=== PATIENT | female | born 1945 | race Caucasian/White ===

== ENCOUNTER 2021-04-08 15:00 | Outpatient (CLI) | payer MEDICARE | END 2021-04-08 15:01 | disposition home or self-care (01) | LOC: RT 15:00 | PROVIDERS: ATTEND Internal Medicine Cardiovascular Disease | DX: I48.91 Unspecified atrial fibrillation (principal) | CPT/HCPCS: 36415; 80053; 80061; 83721; 84439; 84443; 85025; 93005 ==

== ENCOUNTER 2021-04-08 15:30 | Outpatient (CLI) | payer MEDICARE ==
[2021-04-08 15:49] LABS: BASOPHILS % (AUTO) 0.4 %; EOSINOPHILS # (AUTO) 0.3 10^3/uL (0.0-0.7); EOSINOPHILS % (AUTO) 2.7 %; HCT - HEMATOCRIT 43.4 % (37.0-47.0); HGB - HEMOGLOBIN 13.9 g/dL (12.0-16.0); LYMPHOCYTES % (AUTO) 29.9 %; MEAN CORPUSCULAR HEMOGLOBIN 30.1 pg (27.0-31.0); MEAN CORPUSCULAR VOLUME 93.9 fL (81.0-99.0); MONOCYTES # (AUTO) 0.5 10^3/uL (0.0-1.0); MONOCYTES % (AUTO) 5.3 %; NEUTROPHILS # (AUTO) 6.2 10^3/uL (1.5-6.6); NEUTROPHILS % (AUTO) 61.4 %; PLT - PLATELET COUNT 273 10^3/uL (130-450); RED BLOOD COUNT 4.62 10^6/uL (4.20-5.40); RED CELL DISTRIBUTION WIDTH 14.2 % (12.0-15.0); WHITE BLOOD COUNT 10.1 x10^3/uL (4.8-10.8)
[2021-04-08 16:12] LABS: ALBUMIN 4.4 g/dL (3.2-5.5); ALBUMIN/GLOBULIN RATIO 1.6 (1.0-2.2); ALKALINE PHOSPHATASE 59 IU/L (42-121); ALT ALANINE AMINOTRANSFERASE 14 IU/L (10-60); AST ASPARTATE AMINOTRANSFERASE 16 IU/L (10-42); BILIRUBIN,TOTAL 0.8 mg/dL (0.2-1.0); BUN - BLOOD UREA NITROGEN 28 mg/dL (6-20); CALCIUM 9.4 mg/dL (8.5-10.3); CARBON DIOXIDE - CO2 26 mmol/L (21-32); CHLORIDE 103 mmol/L (101-111); CHOL/HDL RATIO 2.2 (<4.4); CHOLESTEROL 201 mg/dL; CREATININE 0.9 mg/dL (0.4-1.0); GFR - MDRD 61 (>89); GLUCOSE 90 mg/dL (70-100); HDL CHOLESTEROL 90 mg/dL; LDL CHOLESTEROL,CALCULATED 95 mg/dL; LDL/HDL RATIO 1.1 (<4.4); POTASSIUM 4.2 mmol/L (3.5-5.0); SODIUM 136 mmol/L (135-145); TOTAL PROTEIN 7.1 g/dL (6.7-8.2); TRIGLYCERIDES 82 mg/dL; VLDL CHOLESTEROL 16 mg/dL
[2021-04-08 16:25] LABS: THYROID STIMULATING HORMONE 0.2 uIU/mL (0.34-5.60)
[2021-04-08 16:27] LABS: FREE T4 (FREE THYROXINE) 1.36 ng/dL (0.58-1.64)
== END 2021-04-08 15:31 | disposition home or self-care (01) ==
LOC: LAB 15:30
PROVIDERS: ATTEND Internal Medicine Cardiovascular Disease
DX: I48.91 Unspecified atrial fibrillation (principal)
CPT/HCPCS: 36415; 80053; 80061; 83721; 84439; 84443; 85025

== ENCOUNTER 2021-04-23 15:29 | Emergency (ER) | payer MEDICARE ==
[2021-04-23] MEDS ORDERED: SODIUM CHLORIDE 0.9% 1,000 ML IV STA ×2 (16:23→17:45)
--- NOTE | 2021-04-23 16:26 | ED Physician Documentation ---
PD HPI NVD - Stated complaint Stated Complaint: AFIB/VOM/SUZANNE/HEADACHE - Chief complaint Chief Complaint: Abd Pain - History obtained from History obtained from: Patient - History of Present Illness Timing - onset: How many days ago (4) Timing - duration: Days (4) Timing - details: Abrupt onset, Now resolved Associated symptoms: Abdominal pain, Other (diarrhea and vomiting) Contributing factors: Bad food Improved by: Vomiting, BM Similar symptoms before: Diagnosis (food poisoning) Recently seen: Not recently seen - Additonal information Additional information: Previously well 75-year-old female reports that she developed some nausea vomiting and diarrhea about 4 days ago. She believes this was some bad food that she ate. She has had something similar previously. She was asked to come to the emergency department when she called the nurse hotline and she was not improved this morning. The patient still feels ill. She has stopped vomiting yesterday she stopped having diarrhea 2 days ago and she was able to drink 12 ounces of daniel shen today. She was not able to drink or consume much of anything yesterday. Review of Systems Constitutional: denies: Fever Ears: denies: Ear pain Nose: denies: Congestion Throat: denies: Sore throat Respiratory: denies: Cough GI: reports: Nausea, Vomiting, Diarrhea. denies: Abdominal Pain : denies: Dysuria, Frequency Skin: denies: Rash Musculoskeletal: denies: Neck pain, Back pain, Extremity pain Neurologic: reports: Generalized weakness. denies: Focal weakness, Numbness PD PAST MEDICAL HISTORY - Allergies Allergies/Adverse Reactions: Allergies Allergy/AdvReac Type Severity Reaction Status Date / Time aspirin AdvReac Hives Verified 04/23/21 15:39 PD ED PE NORMAL - Vitals Vital signs reviewed: Yes (hypertensive mild ) - General General: Alert and oriented X 3, No acute distress, Well developed/nourished - HEENT HEENT: Atraumatic, PERRL, EOMI - Neck Neck: Supple, no meningeal sign, No bony TTP - Cardiac Cardiac: RRR, No murmur - Respiratory Respiratory: No respiratory distress, Clear bilaterally - Abdomen Abdomen: Normal bowel sounds, Soft, Non tender, Non distended, No organomegaly - Back Back: No CVA TTP, No spinal TTP - Derm Derm: Normal color, Warm and dry, No rash, Other (skin tents easily) - Extremities Extremities: No deformity, No edema - Neuro Neuro: Alert and oriented X 3, 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, No motor deficit, No sensory deficit, Normal speech Eye Opening: Spontaneous Motor: Obeys Commands Verbal: Oriented GCS Score: 15 - Psych Psych: Normal mood, Normal affect Results - Vitals Vitals: Vital Signs - 24 hr 04/23/21 04/23/21 04/23/21 15:36 16:22 17:30 Temperature 36.8 C Heart Rate 78 78 75 Respiratory 14 18 18 Rate Blood Pressure 131/75 H 137/78 H 129/70 O2 Saturation 95 98 100 04/23/21 19:22 Temperature Heart Rate 73 Respiratory 25 H Rate Blood Pressure 134/76 H O2 Saturation 99 Oxygen O2 Source Room air - EKG (time done) 1638 Rate: Rate (enter#) (66) Rhythm: NSR QRS: Low voltage Compare to prior EKG: Unchanged from prior EKG (spt 04-08-21 no changes) Computer interpretation: Agree with computer - Labs Labs: Laboratory Tests 04/23/21 04/23/21 04/23/21 16:35 16:35 18:16 WBC 8.0 RBC 4.31 Hgb 13.2 Hct 39.8 MCV 92.3 MCH 30.6 MCHC 33.2 RDW 13.3 Plt Count 244 MPV 9.8 Neut # (Auto) 5.2 Lymph # (Auto) 2.3 [place] # (Auto) 0.5 Eos # (Auto) 0.0 Baso # (Auto) 0.0 Absolute Nucleated RBC 0.00 Nucleated RBC % 0.0 Sodium 138 Potassium 3.4 L Chloride 102 Carbon Dioxide 26 Anion Gap 10.0 BUN 16 Creatinine 0.8 Estimated GFR (MDRD) 70 L Glucose 81 Calcium 9.0 Total Bilirubin 0.5 AST 17 ALT 15 Alkaline Phosphatase 42 Total Protein 6.3 L Albumin 3.6 Globulin 2.7 Albumin/Globulin Ratio 1.3 Lipase 36 Urine Color YELLOW Urine Clarity CLEAR Urine pH 6.0 Ur Specific [place] <=1.005 Urine Protein NEGATIVE Urine Glucose (UA) NEGATIVE Urine Ketones TRACE Urine Occult Blood NEGATIVE Urine Nitrite NEGATIVE Urine Bilirubin NEGATIVE Urine Urobilinogen 0.2 (NORMAL) Ur Leukocyte Esterase NEGATIVE Ur Microscopic Review NOT INDICATED Urine Culture Comments NOT INDICATED Procedures - IVC sono (time) 1555 Bedside IVC sono: IVC measures (cm) (0.89), IVC collapsed c insp (cm) (complete), Significant dehydration (est 2 liter deficit) PD MEDICAL DECISION MAKING - ED course Complexity details: reviewed old records, reviewed results, re-evaluated patient, considered differential, d/w patient, d/w family ED course: 75 y/o female with history of afib has developed nausea vomiting and diarrhea about 4 days ago. The acute episode has resolved and the patient continues to have symptoms of weakness and not feeling well. She is found to be dehydrated on interrogation of the IVC and she is administered IV saline. She has marked improvement with saline and is discharged to home. Departure - Departure Disposition: 01 Home, Self Care Clinical Impression: Dehydration, Gastroenteritis Condition: Stable Instructions: ED Dehydration, ED Gastroenteritis Vs Food Poison Follow-Up: Roberto Gayle MD [Primary Care Provider] -
[2021-04-23 16:56] LABS: BASOPHILS % (AUTO) 0.2 %; EOSINOPHILS % (AUTO) 0.5 %; HCT - HEMATOCRIT 39.8 % (37.0-47.0); HGB - HEMOGLOBIN 13.2 g/dL (12.0-16.0); LYMPHOCYTES # (AUTO) 2.3 10^3/uL (1.5-3.5); LYMPHOCYTES % (AUTO) 29.1 %; MEAN CORPUSCULAR HEMOGLOBIN 30.6 pg (27.0-31.0); MEAN CORPUSCULAR HGB CONC 33.2 g/dL (32.0-36.0); MEAN CORPUSCULAR VOLUME 92.3 fL (81.0-99.0); MEAN PLATELET VOLUME 9.8 fL (7.9-10.8); MONOCYTES # (AUTO) 0.5 10^3/uL (0.0-1.0); NEUTROPHILS # (AUTO) 5.2 10^3/uL (1.5-6.6); NEUTROPHILS % (AUTO) 64.1 %; PLT - PLATELET COUNT 244 10^3/uL (130-450); RED BLOOD COUNT 4.31 10^6/uL (4.20-5.40); RED CELL DISTRIBUTION WIDTH 13.3 % (12.0-15.0)
[2021-04-23 17:06] LABS: ALBUMIN 3.6 g/dL (3.2-5.5); ALBUMIN/GLOBULIN RATIO 1.3 (1.0-2.2); BILIRUBIN,TOTAL 0.5 mg/dL (0.2-1.0); CREATININE 0.8 mg/dL (0.4-1.0); POTASSIUM 3.4 mmol/L (3.5-5.0); TOTAL PROTEIN 6.3 g/dL (6.7-8.2)
[2021-04-23 18:43] LABS: BILIRUBIN,URINE NEGATIVE (NEGATIVE); GLUCOSE, URINE (UA) NEGATIVE (NEGATIVE); KETONES,URINE (UA) TRACE mg/dL (NEGATIVE); LEUKOCYTE ESTERASE, URINE NEGATIVE (NEGATIVE); NITRITE,URINE NEGATIVE (NEGATIVE); OCCULT BLOOD,URINE NEGATIVE (NEGATIVE); PROTEIN,URINE NEGATIVE (NEGATIVE); UROBILINOGEN,URINE 0.2 (NORMAL) E.U./dL (NORMAL)
[2021-04-23 18:46] LABS: CLARITY,URINE CLEAR (CLEAR)
[2021-04-23 19:23] VITALS: BP 134/76
== END 2021-04-23 19:51 | disposition home or self-care (01) ==
LOC: ED 15:29
DX: K52.9 Noninfective gastroenteritis and colitis, unspecified (principal); E86.0 Dehydration
CPT/HCPCS: 36415; 80053; 81001; 81003; 83690; 85025; 87086; 93005; 96360; 96361; 99282

== ENCOUNTER 2021-04-27 22:28 | Emergency (ER) | payer MEDICARE ==
[2021-04-27 23:07] LABS: BASOPHILS # (AUTO) 0.1 10^3/uL (0.0-0.1); BASOPHILS % (AUTO) 0.4 %; EOSINOPHILS # (AUTO) 0.1 10^3/uL (0.0-0.7); EOSINOPHILS % (AUTO) 1.2 %; HCT - HEMATOCRIT 44.3 % (37.0-47.0); HGB - HEMOGLOBIN 14.6 g/dL (12.0-16.0); LYMPHOCYTES # (AUTO) 2.9 10^3/uL (1.5-3.5); LYMPHOCYTES % (AUTO) 25.4 %; MEAN CORPUSCULAR HEMOGLOBIN 30.4 pg (27.0-31.0); MEAN CORPUSCULAR VOLUME 92.1 fL (81.0-99.0); MEAN PLATELET VOLUME 9.6 fL (7.9-10.8); MONOCYTES # (AUTO) 0.6 10^3/uL (0.0-1.0); MONOCYTES % (AUTO) 5.1 %; NEUTROPHILS # (AUTO) 7.6 10^3/uL (1.5-6.6); NEUTROPHILS % (AUTO) 67.5 %; PLT - PLATELET COUNT 354 10^3/uL (130-450); RED BLOOD COUNT 4.81 10^6/uL (4.20-5.40); RED CELL DISTRIBUTION WIDTH 13.5 % (12.0-15.0); WHITE BLOOD COUNT 11.3 x10^3/uL (4.8-10.8)
[2021-04-27] MEDS ORDERED: SODIUM CHLORIDE 0.9% 1,000 ML IV STA (23:13)
[2021-04-27] MEDS ORDERED: ONDANSETRON 4 MG/2 ML VIAL IVP STA (23:13)
[2021-04-27 23:15] LABS: PT - PROTHROMBIN TIME 49.7 secs (9.9-12.6)
[2021-04-27 23:20] LABS: ALBUMIN/GLOBULIN RATIO 1.3 (1.0-2.2); BILIRUBIN,TOTAL 0.5 mg/dL (0.2-1.0); CALCIUM 9.2 mg/dL (8.5-10.3); CREATININE 0.8 mg/dL (0.4-1.0); POTASSIUM 3.5 mmol/L (3.5-5.0); TOTAL PROTEIN 7.1 g/dL (6.7-8.2)
[2021-04-27 23:21] LABS: INR 4.5 (0.8-1.2)
[2021-04-28] MEDS ORDERED: FAMOTIDINE 20 MG/2 ML VIAL IVP STA (00:13)
--- NOTE | 2021-04-28 00:14 | ED Physician Documentation ---
PD HPI NVD - Stated complaint Stated Complaint: VOMIT/HEADACHE - Chief complaint Chief Complaint: Abd Pain - Additonal information Additional information: Patient with a 1 week history of intermittent nausea vomiting and diarrhea. She was seen on April 23 for similar symptoms. No medications were prescribed. Patient states her symptoms were doing better but then yesterday she had 7-8 loose stools. There was no blood. Today again she was doing better and this evening she had a few episodes of emesis after eating chicken and rice soup. She denies diarrhea today. She reported that her nausea had improved yesterday and she did not have any vomiting yesterday. Denies any abdominal pains. She is on Coumadin for history of A. fib. Denies chest pain, difficulty breathing.She believes that she may have had food poisoning from eating pulled pork that did not seem warm enough. She denies sick contacts, recent antibiotic use, recent travel. Review of Systems Constitutional: denies: Fever Nose: denies: Congestion Cardiac: denies: Chest pain / pressure Respiratory: denies: Dyspnea, Cough GI: reports: Nausea, Vomiting, Diarrhea. denies: Abdominal Pain : denies: Dysuria Skin: denies: Rash Neurologic: denies: Syncope PD PAST MEDICAL HISTORY - Present Medications Home Medications: Ambulatory Orders Medication Instructions Recorded Confirmed Dronedarone HCl [Multaq] 04/27/21 Gabapentin [Neurontin] 04/27/21 Levothyroxine [Synthroid] 04/27/21 Omeprazole Magnesium 04/27/21 Simvastatin [Zocor] 04/27/21 04/27/21 Venlafaxine ER [Effexor ER] 04/27/21 Warfarin [Coumadin] 7.5 mg ORAL DAILY 04/27/21 04/27/21 Loperamide [Imodium] 2 mg PO QID PRN #20 tab 04/28/21 Ondansetron Odt [Zofran] 4 mg TL Q6H PRN #10 tablet 04/28/21 - Allergies Allergies/Adverse Reactions: Allergies Allergy/AdvReac Type Severity Reaction Status Date / Time aspirin AdvReac Hives Verified 04/27/21 22:41 PD ED PE NORMAL - General General: Alert and oriented X 3, No acute distress, Well developed/nourished - HEENT HEENT: Atraumatic, Moist mucous membranes - Neck Neck: Supple, no meningeal sign - Cardiac Cardiac: RRR, Strong equal pulses - Respiratory Respiratory: No respiratory distress, Clear bilaterally - Abdomen Abdomen: Normal bowel sounds, Soft, Non tender, Non distended - Back Back: No CVA TTP - Derm Derm: Normal color, Warm and dry - Extremities Extremities: No deformity - Neuro Neuro: No motor deficit, Normal speech - Psych Psych: Normal mood, Normal affect Results - Vitals Vitals: Vital Signs - 24 hr 04/27/21 04/27/21 04/27/21 22:38 23:01 23:53 Temperature 36.4 C L Heart Rate 83 74 72 Respiratory 18 18 18 Rate Blood Pressure 104/79 137/72 H 131/74 H O2 Saturation 97 98 100 04/28/21 00:29 Temperature Heart Rate 74 Respiratory 16 Rate Blood Pressure 122/80 O2 Saturation 97 Oxygen O2 Source Room air - EKG (time done) 2324 Rate: Rate (enter#) Rhythm: NSR (76) [place]: Normal Ischemia: No: ST elevation c/w ischemia Computer interpretation: Agree with computer - Labs Labs: Laboratory Tests 04/27/21 04/27/21 04/27/21 22:50 22:50 22:50 WBC 11.3 H RBC 4.81 Hgb 14.6 Hct 44.3 MCV 92.1 MCH 30.4 MCHC 33.0 RDW 13.5 Plt Count 354 MPV 9.6 Neut # (Auto) 7.6 H Lymph # (Auto) 2.9 [place] # (Auto) 0.6 Eos # (Auto) 0.1 Baso # (Auto) 0.1 Absolute Nucleated RBC 0.00 Nucleated RBC % 0.0 PT 49.7 H INR 4.5 H* Sodium 138 Potassium 3.5 Chloride 101 Carbon Dioxide 26 Anion Gap 11.0 BUN 14 Creatinine 0.8 Estimated GFR (MDRD) 70 L Glucose 100 Calcium 9.2 Total Bilirubin 0.5 AST 19 ALT 17 Alkaline Phosphatase 48 Troponin I High Sens Total Protein 7.1 Albumin 4.0 Globulin 3.1 Albumin/Globulin Ratio 1.3 Lipase 40 04/27/21 22:50 WBC RBC Hgb Hct MCV MCH MCHC RDW Plt Count MPV Neut # (Auto) Lymph # (Auto) [place] # (Auto) Eos # (Auto) Baso # (Auto) Absolute Nucleated RBC Nucleated RBC % PT INR Sodium Potassium Chloride Carbon Dioxide Anion Gap BUN Creatinine Estimated GFR (MDRD) Glucose Calcium Total Bilirubin AST ALT Alkaline Phosphatase Troponin I High Sens 3.6 Total Protein Albumin Globulin Albumin/Globulin Ratio Lipase PD MEDICAL DECISION MAKING - ED course ED course: Patient presenting for evaluation of nausea and vomiting that again started this evening. She has no associated abdominal tenderness. Vital signs appear stable. Labs were obtained without significant abnormality other than patient's elevated INR. She was instructed to hold her Coumadin for 1 day. She denies history of GI bleeding or intracranial hemorrhage. Do not think she needs a dose of vitamin K at this time based on current recommendations.Abdominal exam remained benign. I do not think she needs emergent abdominal imaging. Patient was able to tolerate p.o. Will provide prescriptions for symptomatic treatment. Patient is aware of strict return precautions. Departure - Departure Disposition: Home, Self Care Clinical Impression: Supratherapeutic INR Vomiting Qualifiers: Vomiting type: unspecified Nausea presence: with nausea Qualified Code(s): R11.2 - Nausea with vomiting, unspecified Diarrhea Qualifiers: Diarrhea type: unspecified type Qualified Code(s): R19.7 - Diarrhea, unspecified Condition: Stable Instructions: ED Diet Vomiting Diarrhea Prescriptions: Loperamide [Imodium] 2 mg PO QID PRN #20 tab PRN Reason: Diarrhea Ondansetron Odt [Zofran] 4 mg TL Q6H PRN #10 tablet PRN Reason: Nausea / Vomiting Comments: You were evaluated for nausea and vomiting.Your electrolytes were normal.There were no signs of a heart attack based on your heart exam.Your Coumadin level/ INR is 4.5. This is too high. You should not take your Coumadin dose tomorrow 04/28/21 And also call your primary care doctor to discuss resuming your C oumadin on .Continue with a bland diet. Return to the emergency department if your symptoms do not improve or if you develop new symptoms such as abdominal pain or chest pain.Prescriptions for antinausea and antidiarrheal medications were sent to the [facility] in [place]. Discharge Date/Time: 04/28/21 00:35
[2021-04-28 00:31] VITALS: BP 122/80
== END 2021-04-28 00:35 | disposition home or self-care (01) ==
LOC: ED 22:28
DX: R79.1 Abnormal coagulation profile (principal); I48.91 Unspecified atrial fibrillation; Z79.01 Long term (current) use of anticoagulants
CPT/HCPCS: 36415; 80053; 83690; 84484; 85025; 85610; 93005; 96374; 96375; 99284

== ENCOUNTER 2021-07-26 11:06 | Outpatient (CLI) | payer MEDICARE ==
[2021-07-26 18:18] LABS: CHOL/HDL RATIO 2.7 (<4.4); CHOLESTEROL 214 mg/dL; HDL CHOLESTEROL 80 mg/dL; LDL CHOLESTEROL,CALCULATED 111 mg/dL; LDL/HDL RATIO 1.4 (<4.4); TRIGLYCERIDES 115 mg/dL; VLDL CHOLESTEROL 23 mg/dL
[2021-07-26 18:29] LABS: THYROID STIMULATING HORMONE 0.44 uIU/mL (0.34-5.60)
[2021-07-26 18:54] LABS: ESTIMATED AVERAGE GLUCOSE 117 mg/dL (70-100); HEMOGLOBIN A1c% 5.7 % (4.27-6.07)
== END 2021-07-26 11:07 | disposition home or self-care (01) ==
LOC: LAB.N 11:06
PROVIDERS: ATTEND Nurse Practitioner Family
DX: E78.5 Hyperlipidemia, unspecified (principal); E55.9 Vitamin D deficiency, unspecified; Z13.1 Encounter for screening for diabetes mellitus; E03.9 Hypothyroidism, unspecified
CPT/HCPCS: 36415; 80061; 82306; 83036; 83721; 84443

== ENCOUNTER 2021-08-09 14:37 | Outpatient (CLI) | payer MEDICARE ==
--- NOTE | 2021-08-09 17:18 | DEXA Report ---
PROCEDURE: Dexa Spine and/or Hip INDICATIONS: FORMER SMOKER, POST MENOPAUSAL TECHNIQUE: Dual energy x-ray absorptiometry (DXA) was performed on a XtremIO System. Regions measur ed are the AP Spine, femoral neck, and if needed forearm. COMPARISON: None. FINDINGS: Lumbar Spine: Bone Mineral Density 0.984 g/cm/cm,T score -1.8, osteopenia Left Hip: Bone Mineral Density 0.902 g/cm/cm,T score -0.8, normal bone density Left Femoral Neck: Bone Mineral Density 0.805 g/cm/cm, T score -1.7, osteopenia (T score greater or equal to -1.0: NORMAL) (T score from -1.1 to -2.4: OSTEOPENIA) (T score less than or equal to -2.5 to: OSTEOPOROSIS) Impression: OSTEOPENIA. Patient is at increased risk for fracture Patients with diagnosis of osteoporosis or osteopenia should have regular bone mineral density assess ment. For those eligible for Medicare, routine testing is allowed once every 2 years. Testing frequ ency can be increased for patients who have rapidly progressing disease or for those who are receivin g medical therapy to restore bone mass. Reviewed by: Eyad Burden MD on 08/09/2021 5:17 PM PDT Approved by: Eyad Burden MD on 08/09/2021 5:17 PM PDT Station ID: [id number]
--- NOTE | 2021-08-11 10:23 | CT Report ---
PROCEDURE: Low Dose Lung Cancer Screen INDICATIONS: FORMER SMOKER, POST MENOPAUSAL TECHNIQUE: Noncontrast low-dose images were acquired from the pulmonary apices to the posterior costophrenic ang les. Multiplanar MIP reformats were then acquired. For radiation dose reduction, the following was used: automated exposure control, adjustment of mA and/or kV according to patient size. COMPARISON: None. FINDINGS: Image quality: Excellent. Lungs and pleura: Small lung nodules are present bilaterally. Reference nodules are listed in follow ing: Nodule 1: 2 mm; right lower lobe; series 4 image 120. Nodule 2: 3 mm; left upper lobe; series 4 image 72. Nodule 3: 2 mm; left upper lobe; series 4 image 95. Nodule 4:3 mm; left major fissure; series 4 image 127. Mediastinum: Heart size is normal. Mild coronary artery calcification. No pericardial effusion. No mediastinal adenopathy by size criteria. Thoracic aorta and central pulmonary arteries are normal i n size. Esophagus is normal in caliber. There is a moderate-sized hiatal hernia. Bones and chest wall: No suspicious bony lesions. Moderate chronic T8 vertebral body compression fra cture. No axillary or supraclavicular adenopathy by size criteria. The thyroid is normal in size an d there are no incidental findings. Abdomen: A 1 cm exophytic nodule in the superior pole of the right kidney, most likely a cyst. Visua lized upper abdomen solid organs and bowel loops appear normal in the absence of contrast. IMPRESSION: 1. Small lung nodules are present bilaterally, likely benign. 2. ACR lung RADS category 2. Recommend screening lung CT in 12 months. 3. Moderate-sized hiatal hernia. 4. Mild coronary artery calcification. 5. Moderate chronic T8 compression fracture. Reviewed by: Selvin March MD on 08/11/2021 10:22 AM PDT Approved by: Selvin March MD on 08/11/2021 10:22 AM PDT Station ID: [id number]
== END 2021-08-09 14:38 | disposition home or self-care (01) ==
LOC: DI 14:37
PROVIDERS: ATTEND Nurse Practitioner Family
DX: Z12.2 Encounter for screening for malignant neoplasm of respiratory organs (principal); R91.8 Other nonspecific abnormal finding of lung field; K44.9 Diaphragmatic hernia without obstruction or gangrene; I25.10 Atherosclerotic heart disease of native coronary artery without angina pectoris; M48.54XA Collapsed vertebra, not elsewhere classified, thoracic region, initial encounter for fracture; Z87.891 Personal history of nicotine dependence; M85.89 Other specified disorders of bone density and structure, multiple sites; Z78.0 Asymptomatic menopausal state

== ENCOUNTER 2021-08-31 13:16 | Outpatient (CLI) | payer MEDICARE ==
--- NOTE | 2021-09-13 10:22 | Mammography Report ---
BILATERAL DIGITAL SCREENING MAMMOGRAM 3D/2D: 09/02/2021 CLINICAL: Routine screening. Comparison is made to exam dated: 07/09/2019 mammogram - [facility]. The tissue of bot h breasts is heterogeneously dense. This may lower the sensitivity of mammography. There are benign calcifications in both breasts. No significant masses, calcifications, or other findings are seen in either breast. There has been no significant interval change. IMPRESSION: BENIGN There is no mammographic evidence of malignancy. A 1 year screening mammogram is recommended. Based on the Tyrer Cuzick model (a risk assessment model) the patients lifetime risk is 14.7% and he r 10 year risk is 13.3%. According to the ACR, ACS, and NCCN guidelines, an annual breast MRI exam al silvestre with mammogram is recommended if the patients lifetime risk is 20% or greater. This exam was interpreted at Station ID: [id number]. NOTE: For mammograms, a report in lay terms will be sent to the patient. Approximately 15% of breast malignancies will not be visualized mammographically. In the management of a palpable breast mass, a negative mammogram must not discourage biopsy of a clinically suspicious lesion. Electronically Signed By: Saman anders/kunal:09/13/2021 07:54:59 ACR BI-RADS Category 2: Benign Finding(s) 3342F PARENCHYMAL PATTERN: (D) - The breast(s) demonstrate(s) heterogeneously dense fibroglandular mary cano. BI-RADS CATEGORY: (2) - 2 RECOMMENDATION: (ANNUAL) - Recommend routine annual screening mammography. [id number] 1 year screening LATERALITY: (B)
== END 2021-08-31 13:17 | disposition home or self-care (01) ==
LOC: DI 13:16
DX: Z12.31 Encounter for screening mammogram for malignant neoplasm of breast (principal)

== ENCOUNTER 2021-12-01 08:00 | Outpatient (CLI) | payer MEDICARE ==
--- NOTE | 2021-12-01 16:25 | XRAY Report ---
PROCEDURE: Knee 3 View LT INDICATIONS: L KNEE PX TECHNIQUE: 3 views of the left knee(s) were acquired. COMPARISON: None. FINDINGS: Bones: No fractures or dislocations. No suspicious bony lesions. There is moderate to severe media l as well as moderate lateral and patellofemoral compartment narrowing. No erosions. Soft tissues: Minimal joint effusion. No suspicious soft tissue calcifications. IMPRESSION: Tricompartmental arthritic change most severe medially. Reviewed by: Yuli Delacruz MD on 12/01/2021 4:24 PM PDT Approved by: Yuli Delacruz MD on 12/01/2021 4:24 PM PDT Station ID: [id number]
== END 2021-12-01 23:59 | disposition home or self-care (01) ==
LOC: DI.N 08:00
PROVIDERS: ATTEND Registered Nurse
DX: M17.12 Unilateral primary osteoarthritis, left knee (principal)

== ENCOUNTER 2021-12-28 11:08 | Outpatient (CLI) | payer MEDICARE ==
--- NOTE | 2021-12-28 17:56 | XRAY Report ---
PROCEDURE: Knee 2 View LT INDICATIONS: LEFT KNEE PAIN BILAT AP LEFT TUNNEL ONLY TECHNIQUE: 2 views of the left knee(s) were acquired. COMPARISON: None. FINDINGS: Bones: No fractures or dislocations. Mild to moderate medial femoral tibial compartment osteoarthrit ic changes are seen with joint space narrowing and subchondral sclerosis. No suspicious bony lesions. Soft tissues: No suspicious soft tissue calcifications. 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 No fracture or d islocation. Reviewed by: Genaro Orozco MD on 12/28/2021 5:55 PM PST Approved by: Genaro Orozco MD on 12/28/2021 5:55 PM PST Station ID: [id number]
== END 2021-12-28 11:09 | disposition home or self-care (01) ==
LOC: DI.WOS 11:08
PROVIDERS: ATTEND Orthopaedic Surgery
DX: M17.12 Unilateral primary osteoarthritis, left knee (principal)

== ENCOUNTER 2022-03-25 15:15 | Outpatient (CLI) | payer MEDICARE | END 2022-03-25 15:30 | disposition home or self-care (01) | LOC: LAB.N 15:15 | PROVIDERS: ATTEND Registered Nurse | DX: R31.9 Hematuria, unspecified (principal) | CPT/HCPCS: 87086; 87181 ==

== ENCOUNTER 2022-04-19 11:15 | Outpatient (CLI) | payer MEDICARE | END 2022-04-19 11:30 | disposition home or self-care (01) | LOC: LAB.N 11:15 | PROVIDERS: ATTEND Nurse Practitioner | DX: R30.0 Dysuria (principal) | CPT/HCPCS: 87086; 87181 ==

== ENCOUNTER 2022-07-15 09:45 | Outpatient (CLI) | payer MEDICARE ==
[2022-07-15 10:10] LABS: BASOPHILS % (AUTO) 0.4 %; EOSINOPHILS # (AUTO) 0.2 10^3/uL (0.0-0.7); EOSINOPHILS % (AUTO) 2.7 %; HCT - HEMATOCRIT 37.7 % (37.0-47.0); HGB - HEMOGLOBIN 11.6 g/dL (12.0-16.0); LYMPHOCYTES # (AUTO) 2.9 10^3/uL (1.5-3.5); MEAN CORPUSCULAR HEMOGLOBIN 26.4 pg (27.0-31.0); MEAN CORPUSCULAR HGB CONC 30.8 g/dL (32.0-36.0); MEAN CORPUSCULAR VOLUME 85.7 fL (81.0-99.0); MEAN PLATELET VOLUME 10.2 fL (7.9-10.8); MONOCYTES # (AUTO) 0.4 10^3/uL (0.0-1.0); MONOCYTES % (AUTO) 5.4 %; NEUTROPHILS # (AUTO) 3.5 10^3/uL (1.5-6.6); NEUTROPHILS % (AUTO) 50.2 %; PLT - PLATELET COUNT 333 10^3/uL (130-450); RED CELL DISTRIBUTION WIDTH 15.4 % (12.0-15.0)
[2022-07-15 10:29] LABS: ALBUMIN 3.9 g/dL (3.2-5.5); ALBUMIN/GLOBULIN RATIO 1.3 (1.0-2.2); ALKALINE PHOSPHATASE 59 IU/L (42-121); ALT ALANINE AMINOTRANSFERASE 17 IU/L (10-60); AST ASPARTATE AMINOTRANSFERASE 21 IU/L (10-42); BILIRUBIN,TOTAL 0.6 mg/dL (0.2-1.0); BUN - BLOOD UREA NITROGEN 22 mg/dL (6-20); CALCIUM 8.8 mg/dL (8.5-10.3); CARBON DIOXIDE - CO2 27 mmol/L (21-32); CHLORIDE 104 mmol/L (101-111); CHOL/HDL RATIO 2.3 (<4.4); CHOLESTEROL 201 mg/dL; CREATININE 0.9 mg/dL (0.4-1.0); GFR - MDRD 61 (>89); GLUCOSE 102 mg/dL (70-100); HDL CHOLESTEROL 88 mg/dL; LDL CHOLESTEROL,CALCULATED 93 mg/dL; LDL/HDL RATIO 1.1 (<4.4); POTASSIUM 4.3 mmol/L (3.5-5.0); SODIUM 143 mmol/L (135-145); TOTAL PROTEIN 6.9 g/dL (6.7-8.2); TRIGLYCERIDES 101 mg/dL; VLDL CHOLESTEROL 20 mg/dL
[2022-07-15 10:40] LABS: THYROID STIMULATING HORMONE 2.64 uIU/mL (0.34-5.60)
== END 2022-07-15 09:46 | disposition home or self-care (01) ==
LOC: LAB 09:45
PROVIDERS: ATTEND Nurse Practitioner Family
DX: I10 Essential (primary) hypertension (principal); E78.5 Hyperlipidemia, unspecified; E03.9 Hypothyroidism, unspecified
CPT/HCPCS: 36415; 80053; 80061; 83721; 84443; 85025

== ENCOUNTER 2022-08-15 12:49 | Outpatient (CLI) | payer MEDICARE ==
--- NOTE | 2022-08-17 10:13 | Mammography Report ---
BILATERAL DIGITAL SCREENING MAMMOGRAM 3D/2D: 08/15/2022 CLINICAL: Routine screening. Comparison is made to exams dated: 09/02/2021 mammogram - [facility] and 07/09/2019 mammogram - [facility]. Both breasts are heterogeneously dense, which may obscure small masses (category c / 51-75% glandular tissue). There are benign calcifications in both breasts. No significant masses, calcifications, or other findings are seen in either breast. There has been no significant interval change. IMPRESSION: BENIGN There is no mammographic evidence of malignancy. A 1 year screening mammogram is recommended. Based on the Tyrer Cuzick model (a risk assessment model) the patients lifetime risk is 13.6% and he r 10 year risk is 13.6%. According to the ACR, ACS, and NCCN guidelines, an annual breast MRI exam al silvestre with mammogram is recommended if the patients lifetime risk is 20% or greater. This exam was interpreted at Station ID: [id number]. NOTE: For mammograms, a report in lay terms will be sent to the patient. Approximately 15% of breast malignancies will not be visualized mammographically. In the management of a palpable breast mass, a negative mammogram must not discourage biopsy of a clinically suspicious lesion. Electronically Signed By: Eyad guzman/kunal:08/15/2022 19:09:00 letter sent: No_Letter ACR BI-RADS Category 2: Benign Finding(s) 3342F PARENCHYMAL PATTERN: (D) - The breast(s) demonstrate(s) heterogeneously dense fibroglandular mary cano. BI-RADS CATEGORY: (2) - 2 Mammogram [id number] 1 year screening LATERALITY: (B)
== END 2022-08-15 12:50 | disposition home or self-care (01) ==
LOC: DI 12:49
DX: Z12.31 Encounter for screening mammogram for malignant neoplasm of breast (principal)

== ENCOUNTER 2022-08-15 12:50 | Outpatient (CLI) | payer MEDICARE ==
--- NOTE | 2022-08-15 17:51 | CT Report ---
PROCEDURE: Low Dose Lung Cancer Screen INDICATIONS: HIST OF SMOKING TECHNIQUE: A CT scan of the chest was performed. Intravenous contrast media was not administered. Images were re corded and evaluated at appropriate window settings. Reformats: axial MIP of the chest, coronal and s agittal. For radiation dose reduction, the following was used: automated exposure control, adjustment of mA and/or kV according to patient size. COMPARISON: None. FINDINGS: Image quality: Excellent. Prior cancer history: Unsure. Lungs and pleura: No pleural effusions. No pneumothorax. There is a stable 5 mm pulmonary nodule wit hin the right lower lobe (series 4/image 179). No new pulmonary nodules. No acute airspace opacities. Mediastinum: Heart size is normal. No pericardial effusion. No large vessel abnormality. No mediastin al adenopathy by size criteria. Chest wall and lower neck: Thyroid is unremarkable. No axillary or supraclavicular adenopathy by size . Bones: No aggressive osseous abnormality. Upper Abdomen: Unremarkable. IMPRESSION: Lung RAD: 1 - Negative. Recommendation: Continue annual screening in 12 Months with LDCT Non-Lung Significant Findings: None. Reviewed by: Sima Guerrero MD on 08/15/2022 5:50 PM PDT Approved by: Sima Guerrero MD on 08/15/2022 5:50 PM PDT Station ID: [id number]
== END 2022-08-15 12:51 | disposition home or self-care (01) ==
LOC: DI 12:50
PROVIDERS: ATTEND Nurse Practitioner Family
DX: Z12.2 Encounter for screening for malignant neoplasm of respiratory organs (principal); Z87.891 Personal history of nicotine dependence; R91.1 Solitary pulmonary nodule

== ENCOUNTER 2022-09-22 13:36 | Outpatient (CLI) | payer MEDICARE | END 2022-09-22 13:37 | disposition home or self-care (01) | LOC: RT 13:36 | PROVIDERS: ATTEND Internal Medicine Cardiovascular Disease | DX: I48.91 Unspecified atrial fibrillation (principal) | CPT/HCPCS: 93005 ==

== ENCOUNTER 2023-04-27 09:06 | Outpatient (CLI) | payer MEDICARE | END 2023-04-27 09:07 | disposition home or self-care (01) | LOC: RT 09:06 | PROVIDERS: ATTEND Internal Medicine Cardiovascular Disease | DX: I48.91 Unspecified atrial fibrillation (principal) | CPT/HCPCS: 93005 ==

== ENCOUNTER 2023-04-27 09:34 | Outpatient (CLI) | payer MEDICARE ==
--- NOTE | 2023-04-27 17:57 | XRAY Report ---
PROCEDURE: Chest 2V INDICATIONS: SANCHES TECHNIQUE: 2 views of the chest were acquired. COMPARISON: None. FINDINGS: Surgical changes and devices: None. Lungs and pleura: No pleural effusions or pneumothorax. Lungs are clear. Mediastinum: Mediastinal contours appear normal. Heart size is normal. Bones and chest wall: No suspicious bony lesions. Overlying soft tissues appear unremarkable. IMPRESSION: No acute cardiopulmonary process. Reviewed by: Genaro Orozco MD on 04/27/2023 5:56 PM PDT Approved by: Genaro Orozco MD on 04/27/2023 5:56 PM PDT Station ID: [id number]
== END 2023-04-27 09:35 | disposition home or self-care (01) ==
LOC: DI 09:34
PROVIDERS: ATTEND Internal Medicine Cardiovascular Disease
DX: R06.09 Other forms of dyspnea (principal)

== ENCOUNTER 2023-05-04 10:54 | Outpatient (CLI) | payer MEDICARE ==
--- NOTE | 2023-05-04 12:11 | Sleep Patient Instructions ---
Sleep Center Visit Summary - Patient Visit Information Reason for Visit: Initial consultation - Patient Instructions Additional Instructions: You will continue with CPAP therapy with pressure set at 14.2 cmH2O. A supply prescription will be updated with your DME. I am adding an order to service machine that appears to be malfunctioning. We encourage you to continue to try to lose weight. Please follow up with the sleep care office in 1-2 months. - Clinic Information Contact: [facility] [address] [place] [id number] [email or web address] T: [phone]
--- NOTE | 2023-05-04 12:24 | SLEEP CARE CONSULTATION ---
Information from patient questionnaire entered by Makayla Siddiqui. I have reviewed and concur with the information entered by Makayla Siddiqui. This document represents the service I personally performed and the decisions made by me, Jreome Diamond ARNP. History of Present Illness Service Date and Time: 05/04/2023 1054 Reason for Visit: New patient, Previously diagnosed sleep apnea, sleep apnea on CPAP therapy Chief Complaint: reports: Snoring Date of Onset: UNSURE Usual bedtime: 11PM Time it takes to fall asleep: 30MINS Snores at night: Yes Sleeps alone due to snoring: Yes Number of times waking at night: 1-2 Reasons for waking at night: reports: Bathroom Toss, Turn, or Twitch while sleeping: No Recalls having dreams: Yes Usually gets out of bed at: 0800 Morning headache: No Ever fallen asleep while driving: No Takes day naps: No Prior sleep studies: Yes Year and Where: 2020 [place], [place]; [facility] Additional HPI information: BLANCA KLEIN was previously diagnosed to have moderate, AHI 21.6, obstructive sleep apnea-hypopnea syndrome as seen in HST done on 05/06/20 through [facility] in [place] and comes in today to establish care for CPAP therapy. - Parasomnia Symptoms Ever been unable to move upon waking from sleep: No Walks in sleep: No Ever acted out dreams in sleep: Yes Ever felt weak in the knees when startled or emotional: No Bothered by creepy, crawly, restless sensations in legs: No Problems with memory or concentration: No CPAP Compliance Data - Data Reviewed with Patient Average duration of nightly device use: 6 hours 56 minutes Compliance rate %: 61 (122/180 days used; 08/13/22-02/08/2023) Current pressure setting (cmH2O): 14.2 Average residual AHI: 11.4 (unknown 9.3) Central apnea: 0.2 Obstructive apnea: 1.7 Hypopnea: 0.1 Average large leak: 43.7 L/min Compliance data discussion: She has a ResMed Airsense 10. It is currently malfunctioning, shutting off after hour of running. She has been getting supplies from a DME but she does not know the name. She go her machine originally from [facility]. She is using a full face mask, ResMed AirFit F30i. She also uses a chinstrap. Subjective Missed days of use due to: reports: other (machine malfunctioning, shutting off) Patient concerns: reports: dry mouth, nose, throat (dry mouth, uses chinstrap and it helps). denies: aerophagia, mask discomfort, air blowing in eyes, mask leak noise, condensation in mask/hose, nasal congestion, epistaxis Observed to snore while using device: No Current pressure setting perceived as: comfortable On therapy, patient: reports: sleeping better, awakening more refreshed, being more awake and alert during the day, more rested overall. denies: drowsiness while driving Initial [place] Sleepiness Scale score: 3 (03/17/23) Past Medical History Past Medical History: reports: Arrythmia (Atrial fibrillation), Depression, GERD, Other (NEUROPATHY) Social History The patient's occupation is a RETIRED. Patient is and lives in [facility]. Have you smoked in the past 12 months: No Cigarettes per day (20/pack): 20 Years of smokin Quit date: 02/12/1998 Smoking Pack Years: 30.0 Alcohol use: Yes Alcohol amount and frequency: 1-2 GLASSES WINE WITH DINNER Caffeine use: Yes Caffeine amount and frequency: 1 COFFEE QD ONLY IN AM Family History Family history of sleep disordered breathing: Yes Family Hx Sleep Apnea: Father: Snoring Allergies and Home Medications Known drug allergies: Yes (PCN) Drug allergies reviewed: Yes Home medication list reviewed: Yes (as listed) Allergy and home medication list: Allergies aspirin Adverse Reaction (Verified 05/02/23 15:24) Hives Home Medications Medication Instructions Recorded Confirmed Last Taken Type Dronedarone HCl [Multaq] See Rx Instructions .ROUTE .COMPLEX 04/27/21 05/03/23 Unknown History Gabapentin [Neurontin] See Rx Instructions .ROUTE .COMPLEX 04/27/21 05/03/23 Unknown History Simvastatin [Zocor] See Rx Instructions .ROUTE .COMPLEX 04/27/21 05/03/23 Unknown History Venlafaxine ER [Effexor ER] See Rx Instructions .ROUTE .COMPLEX 04/27/21 05/03/23 Unknown History Warfarin [Coumadin] See Rx Instructions .ROUTE .COMPLEX 04/27/21 05/03/23 Unknown History Alpha Lipoic Acid See Rx Instructions .ROUTE .COMPLEX 05/03/23 05/03/23 Unknown History Ascorbic Acid [Vitamin C] See Rx Instructions .ROUTE .COMPLEX 05/03/23 05/03/23 Unknown History Calcium Citrate/Vitamin D3 See Rx Instructions .ROUTE .COMPLEX 05/03/23 05/03/23 Unknown History [Citracal + D Maximum Caplet] Cholecalciferol (Vitamin D3) See Rx Instructions .ROUTE .COMPLEX 05/03/23 05/03/23 Unknown History [Vitamin D3] Cyanocobalamin (Vitamin B-12) See Rx Instructions .ROUTE .COMPLEX 05/03/23 05/03/23 Unknown History [Vitamin B12] L-Thyroxine See Rx Instructions .ROUTE .COMPLEX 05/03/23 05/03/23 Unknown History Leucovorin/Pyridox/Mecobalamin See Rx Instructions .ROUTE .COMPLEX 05/03/23 05/03/23 Unknown History [Folinic-Plus Caplet] Mv-Min/FA/Vit K/Lutein/Zeaxant See Rx Instructions .ROUTE .COMPLEX 05/03/23 05/03/23 Unknown History [Preservision Areds 2 Plus Mv] Nerve Control 911 See Rx Instructions .ROUTE .COMPLEX 05/03/23 05/03/23 Unknown History Tart Wilson Extract See Rx Instructions .ROUTE .COMPLEX 05/03/23 05/03/23 Unknown History Ubidecarenone [Co Q-10] See Rx Instructions .ROUTE .COMPLEX 05/03/23 05/03/23 Unknown History Review of Systems Weight gain over past 5 years: 35 Cardiovascular: reports: palpitations. denies: high blood pressure Respiratory: reports: shortness of breath Gastrointestinal: reports: heartburn Urinary: reports: incontinence Psychiatric: reports: depression Ear/Nose/Throat: reports: sinus problems, tonsillectomy, wisdom teeth removed Musculoskeletal: reports: joint pain, neck pain, muscle pain or cramping Immunologic: reports: sneezing Physical Exam Vital signs obtained and entered by: JEROME JOLLEY Blood Pressure: 112/87 Cuff size: regular (right arm) Heart Rate: 81 O2 Saturation: 95 Height: 5 ft 6 in Weight: 187 lb 9.6 oz Body Mass Index: 30.2 BMI Classification: Obese Neck circumference: 15 (inches) Mouth and throat: narrow oropharynx Soft palate: long Hard palate: normal Uvula: normal Uvula visualization: 25% Mallampati Class III Tongue: normal in size Tonsils: absent bilaterally Neck: normal w/o lymphadenopathy or thyromegaly Heart: regular rate and rhythm Lungs: clear bilaterally Impression and Plan 1. Obstructive Sleep Apnea-Hypopnea Syndrome, moderate, with fair treatment compliance and fair apnea control with elevated residual AHI. On CPAP therapy, the patient has better sleep quality and is more rested overall. Her residual AHI is elevated but her average large leak is around 88 L/min. I think her pressure of 14.2 cmH2O is working well with some outlier respiratory episodes falsely elevated because of the extreme large leaks noted. She was having a problem with her machine, lights not working, and sent it to a company in [place] to have it checked out because Frances told her they did not do it. She states since she got the machine back it has turned off an hour after she was using the machine. She then got frustrated with it and has not been using the CPAP since that time. It appears that her machine may be malfunctioning and I will write to have it serviced. I also encouraged the patient to try to use the CPAP again and see if it continues to set off after an hour or so of use. She voiced understanding and agreement. Patient's apnea severity and rationale for treatment to reduce apnea, improve sleep quality and reduce cardiovascular and cerebrovascular events was reviewed. I also reviewed the benefit of consistent device use of CPAP for arrhythmia, gastric reflux, depression. 2. Obesity, unspecified. Currently patients BMI is 30.2. Obesity increases the risk of apnea, CPAP pressure requirements and overall health risks especially cardiovascular and diabetes. Thus patient is advised to lose weight. * Continue auto CPAP pressure at 14.2 cmH2O * Update supply prescription * Service machine * Notify me if snoring with mask or feeling that the pressure is too much or too little * Attempt to lose weight * Call this office if any problems using CPAP * Return for follow up in 1-2 months, or sooner if concerns arise Counseling Topics: Spare mask, Weight loss health impact Prescriptions: Device supplies (with machine service order) Follow up with Sleep Care in: 1-2 months Visit Type: In Office Time Spent with Patient (minutes): 44 Provider Statement: I spent 100% of the Face to Face Visit with the patient with greater than 50% spent counseling the patient and coordination of care.
[2023-05-04 12:33] VITALS: BP 112/87; O2SAT 95
== END 2023-05-04 10:55 | disposition home or self-care (01) ==
LOC: SC 10:54
PROVIDERS: ATTEND Nurse Practitioner Family
DX: G47.33 Obstructive sleep apnea (adult) (pediatric) (principal); E66.9 Obesity, unspecified; Z68.30 Body mass index [BMI] 30.0-30.9, adult
CPT/HCPCS: 99203; G0463; 99212

== ENCOUNTER 2023-06-15 13:17 | Outpatient (CLI) | payer MEDICARE ==
[2023-06-15 13:31] LABS: BASOPHILS % (AUTO) 0.4 %; EOSINOPHILS # (AUTO) 0.2 10^3/uL (0.0-0.7); EOSINOPHILS % (AUTO) 2.3 %; HCT - HEMATOCRIT 35.5 % (37.0-47.0); LYMPHOCYTES # (AUTO) 2.9 10^3/uL (1.5-3.5); LYMPHOCYTES % (AUTO) 29.3 %; MEAN CORPUSCULAR HEMOGLOBIN 21.7 pg (27.0-31.0); MEAN CORPUSCULAR HGB CONC 28.2 g/dL (32.0-36.0); MEAN CORPUSCULAR VOLUME 77.2 fL (81.0-99.0); MEAN PLATELET VOLUME 10.1 fL (7.9-10.8); MONOCYTES # (AUTO) 0.5 10^3/uL (0.0-1.0); MONOCYTES % (AUTO) 5.2 %; NEUTROPHILS # (AUTO) 6.3 10^3/uL (1.5-6.6); NEUTROPHILS % (AUTO) 62.6 %; PLT - PLATELET COUNT 347 10^3/uL (130-450); RED CELL DISTRIBUTION WIDTH 21.2 % (12.0-15.0); WHITE BLOOD COUNT 10.1 x10^3/uL (4.8-10.8)
[2023-06-15 13:41] LABS: INR 2.1 (0.8-1.2); PT - PROTHROMBIN TIME 22.4 secs (9.9-12.6)
[2023-06-15 13:54] LABS: CALCIUM 9.5 mg/dL (8.5-10.3); CREATININE 1.2 mg/dL (0.6-1.3); POTASSIUM 4.4 mmol/L (3.5-4.5)
== END 2023-06-15 13:18 | disposition home or self-care (01) ==
LOC: LAB 13:17
PROVIDERS: ATTEND Internal Medicine Cardiovascular Disease
DX: I48.0 Paroxysmal atrial fibrillation (principal)
CPT/HCPCS: 36415; 80048; 85025; 85610

== ENCOUNTER 2023-08-02 09:29 | Outpatient (CLI) | payer MEDICARE ==
[2023-08-02 09:42] LABS: BASOPHILS % (AUTO) 0.4 %; EOSINOPHILS # (AUTO) 0.2 10^3/uL (0.0-0.7); HCT - HEMATOCRIT 37.7 % (37.0-47.0); HGB - HEMOGLOBIN 11.5 g/dL (12.0-16.0); LYMPHOCYTES # (AUTO) 3.7 10^3/uL (1.5-3.5); LYMPHOCYTES % (AUTO) 38.2 %; MEAN CORPUSCULAR HEMOGLOBIN 23.9 pg (27.0-31.0); MEAN CORPUSCULAR HGB CONC 30.5 g/dL (32.0-36.0); MEAN CORPUSCULAR VOLUME 78.4 fL (81.0-99.0); MEAN PLATELET VOLUME 9.6 fL (7.9-10.8); MONOCYTES # (AUTO) 0.5 10^3/uL (0.0-1.0); NEUTROPHILS # (AUTO) 5.3 10^3/uL (1.5-6.6); NEUTROPHILS % (AUTO) 54.2 %; PLT - PLATELET COUNT 331 10^3/uL (130-450); RED BLOOD COUNT 4.81 10^6/uL (4.20-5.40); RED CELL DISTRIBUTION WIDTH 20.2 % (12.0-15.0); WHITE BLOOD COUNT 9.8 x10^3/uL (4.8-10.8)
[2023-08-02 09:45] LABS: RBC MORPHOLOGY (MULTIPLE) 4+ ANISOCYTOSIS (NORMAL); SLIDE REVIEW? Indicated
[2023-08-02 10:02] LABS: ALBUMIN 4.1 g/dL (3.2-5.5); ALBUMIN/GLOBULIN RATIO 1.5 (1.0-2.2); ALKALINE PHOSPHATASE 71 IU/L (42-121); ALT ALANINE AMINOTRANSFERASE 9 IU/L (10-60); AST ASPARTATE AMINOTRANSFERASE 14 IU/L (10-42); BILIRUBIN,TOTAL 0.4 mg/dL (0.2-1.0); BUN - BLOOD UREA NITROGEN 24 mg/dL (6-20); CALCIUM 9.7 mg/dL (8.5-10.3); CARBON DIOXIDE - CO2 30 mmol/L (21-32); CHLORIDE 105 mmol/L (101-111); CHOL/HDL RATIO 2.4 (<4.4); CHOLESTEROL 212 mg/dL; GFR - MDRD 54 (>89); GLUCOSE 102 mg/dL (74-104); HDL CHOLESTEROL 87 mg/dL; LDL CHOLESTEROL,CALCULATED 107 mg/dL; LDL/HDL RATIO 1.2 (<4.4); POTASSIUM 4.3 mmol/L (3.5-4.5); SODIUM 140 mmol/L (135-145); TOTAL PROTEIN 6.8 g/dL (6.4-8.9); TRIGLYCERIDES 91 mg/dL (48-352); VLDL CHOLESTEROL 18 mg/dL
[2023-08-02 10:31] LABS: ESTIMATED AVERAGE GLUCOSE 105 mg/dL (70-100); HEMOGLOBIN A1c% 5.3 % (4.27-6.07)
== END 2023-08-02 09:30 | disposition home or self-care (01) ==
LOC: LAB 09:29
PROVIDERS: ATTEND Nurse Practitioner Family
DX: I10 Essential (primary) hypertension (principal); E78.5 Hyperlipidemia, unspecified; E03.9 Hypothyroidism, unspecified; Z13.1 Encounter for screening for diabetes mellitus; E66.9 Obesity, unspecified
CPT/HCPCS: 36415; 80053; 80061; 83036; 83721; 84443; 85025

== ENCOUNTER 2023-08-16 18:39 | Outpatient (CLI) | payer MEDICARE | END 2023-08-16 18:40 | disposition EMS.NT | LOC: EMS 18:39 | DX: Z03.89 Encounter for observation for other suspected diseases and conditions ruled out (principal) ==

== ENCOUNTER 2023-08-17 17:20 | Emergency (ER) | payer MEDICARE ==
--- NOTE | 2023-08-17 17:59 | ED Physician Documentation ---
History of Present Illness - Stated complaint Stated Complaint: FALL - Chief complaint Chief Complaint: Trauma Ext - History obtained from History obtained from: Patient, Family, EMS - History of Present Illness Timing: Yesterday Pain level max: 5 Pain level now: 5 - Additonal information Additional information: Patient is a 77-year-old female who presents to the emergency department after a ground-level fall at home yesterday. She states that she was stuck in between a coffee table and the wall. She states that EMS came and helped her stand up and get into her chair. She states she has been up and walking today. Took Tylenol. Has had increasing pain in the right shoulder, right clavicle and right hip. Worse with movement, better with rest. Is on warfarin. Does not have a headache. Does not believe she struck her head. No neck or back pain. She is on warfarin Uses a cane at home Review of Systems Constitutional: denies: Fever, Chills Respiratory: denies: Cough GI: denies: Nausea, Vomiting, Diarrhea Skin: denies: Rash PD PAST MEDICAL HISTORY - Past Medical History Past Medical History: Yes Cardiovascular: Atrial fibrillation Neuro: Other Psych: Depression - Past Surgical History Past Surgical History: Yes /[employer]: Hysterectomy Cardiovascular: Other HEENT: Tonsil/Adenoidectomy - Present Medications Home Medications: Ambulatory Orders Medication Instructions Recorded Confirmed Dronedarone HCl [Multaq] See Rx Instructions .ROUTE .COMPLEX 04/27/21 06/13/23 Gabapentin [Neurontin] See Rx Instructions .ROUTE .COMPLEX 04/27/21 06/13/23 Simvastatin [Zocor] See Rx Instructions .ROUTE .COMPLEX 04/27/21 06/13/23 Venlafaxine ER [Effexor ER] See Rx Instructions .ROUTE .COMPLEX 04/27/21 06/13/23 Warfarin [Coumadin] See Rx Instructions .ROUTE .COMPLEX 04/27/21 06/13/23 Alpha Lipoic Acid See Rx Instructions .ROUTE .COMPLEX 05/03/23 06/13/23 Ascorbic Acid [Vitamin C] See Rx Instructions .ROUTE .COMPLEX 05/03/23 06/13/23 Calcium Citrate/Vitamin D3 See Rx Instructions .ROUTE .COMPLEX 05/03/23 06/13/23 [Citracal + D Maximum Caplet] Cholecalciferol (Vitamin D3) See Rx Instructions .ROUTE .COMPLEX 05/03/23 06/13/23 [Vitamin D3] Cyanocobalamin (Vitamin B-12) See Rx Instructions .ROUTE .COMPLEX 05/03/23 06/13/23 [Vitamin B12] L-Thyroxine See Rx Instructions .ROUTE .COMPLEX 05/03/23 06/13/23 Leucovorin/Pyridox/Mecobalamin See Rx Instructions .ROUTE .COMPLEX 05/03/23 06/13/23 [Folinic-Plus Caplet] Mv-Min/FA/Vit K/Lutein/Zeaxant See Rx Instructions .ROUTE .COMPLEX 05/03/23 06/13/23 [Preservision Areds 2 Plus Mv] Nerve Control 911 See Rx Instructions .ROUTE .COMPLEX 05/03/23 06/13/23 Tart Wilson Extract See Rx Instructions .ROUTE .COMPLEX 05/03/23 06/13/23 Ubidecarenone [Co Q-10] See Rx Instructions .ROUTE .COMPLEX 05/03/23 06/13/23 - Allergies Allergies/Adverse Reactions: Allergies Allergy/AdvReac Type Severity Reaction Status Date / Time Penicillins Allergy Hives Verified 08/17/23 17:39 aspirin AdvReac Hives Verified 08/17/23 17:39 - Social History Does the pt smoke?: No Smoking Status: Never smoker Does the pt drink ETOH?: No Does the pt have substance abuse?: No - Immunizations Immunizations are current?: Yes PD ED PE NORMAL - Vitals Vital signs reviewed: Yes - General General: Alert and oriented X 3, No acute distress - HEENT HEENT: Atraumatic, PERRL, Moist mucous membranes - Neck Neck: Supple, no meningeal sign, No bony TTP (no step off or deformity) - Cardiac Cardiac: RRR, Strong equal pulses - Respiratory Respiratory: No respiratory distress, Clear bilaterally - Abdomen Abdomen: Soft, Non tender, Non distended - Back Back: No spinal TTP - Derm Derm: Warm and dry - Neuro Neuro: Alert and oriented X 3, life skills teacher 2-12 intact, No motor deficit, No sensory deficit, Normal speech - Psych Psych: Normal mood, Normal affect - Free text exam Free text exam: Mild tenderness over the sternal end of the right clavicle. No deformity. No ecchymosis. Also mild tenderness over the right glenohumeral joint. No deformity. No swelling. No ecchymosis. Neurovascular intact. Also mild tenderness over the right buttock. No tenderness over the right hip itself or the greater trochanter. No pain with internal/external rotation of the right hip. No pain with excess tension or flexion. Otherwise normal examination of all major joints. Results - Vitals Vitals: Vital Signs - 24 hr 08/17/23 08/17/23 08/17/23 17:24 18:08 19:37 Temperature 36.7 C 36.6 C Heart Rate 90 87 86 Respiratory 16 20 16 Rate Blood Pressure 137/74 H 121/68 120/66 O2 Saturation 94 94 96 Oxygen O2 Source Room air - Labs Labs: Laboratory Tests 08/17/23 18:08 INR (Fingerstick) 2.8 H - Rads (name of study) R clavicle xray Relevant Findings:: Final report received, See rad report R shoulder xray Relevant Findings:: Final report received, See rad report R hip xray Relevant Findings:: Final report received, See rad report head CT Relevant Findings:: Final report received, See rad report PD Medical Decision Making - ED course Complexity details: reviewed results, re-evaluated patient, considered differential, d/w patient, d/w family ED course: No acute findings on head CT, right clavicle x-ray, right shoulder x-ray, right hip x-ray. No evidence of fractures. No dislocations. Appears to have soft tissue injuries and soft tissue contusions. Pain well-controlled in the emergency department. Ambulating without difficulty. Neurovascular intact. No neck or back pain. We will have her follow-up with her doctor for further care. Continue Motrin and Tylenol as needed for pain at home. Patient counseled regarding signs and symptoms for which I believe and urgent re-evaluation would be necessary. Patient with good understanding of and agreement to plan and is comfortable going home at this time This document was made in part using voice recognition software. While efforts are made to proofread this document, sound alike and grammatical errors may occur. Departure - Departure Disposition: 01 Home, Self Care Clinical Impression: Shoulder contusion Qualifiers: Encounter type: initial encounter Laterality: right Qualified Code(s): S40.011A - Contusion of right shoulder, initial encounter Contusion, hip Qualifiers: Encounter type: initial encounter Laterality: right Qualified Code(s): S70.01XA - Contusion of right hip, initial encounter Condition: Good Instructions: ED Contusion Lower Ext, ED Contusion Upper Ext Follow-Up: your,doctor in 1 week [Other] Comments: Your x-rays do not show any acute fractures today. Your head CT does not show any bleeding inside your brain. You likely have soft tissue contusions. You can use ice and heat to help at home. You can use Tylenol as needed for pain. Please follow-up with your doctor for further care and return if you worsen. Forms: PCP List Discharge Date/Time: 08/17/23 19:37
--- NOTE | 2023-08-17 19:00 | CT Report ---
PROCEDURE: Head WO INDICATIONS: fall TECHNIQUE: Noncontrast 4.5 mm thick angled axial sections acquired from the foramen magnum to the vertex. For r adiation dose reduction, the following was used: automated exposure control, adjustment of mA and/or kV according to patient size. COMPARISON: None. FINDINGS: Image quality: Excellent. CSF spaces: Basal cisterns are patent. No extra-axial fluid collections. Ventricles are normal in size and shape. Brain: No midline shift. No intracranial masses or hemorrhage. Age-related global volume loss and chronic microvascular ischemic changes. Intracranial atherosclerotic vascular calcifications. Liao-w mikey matter interface is normal. Skull and face: Calvarium and visualized facial bones are intact, without suspicious lesions. Lungs replacements. Sinuses: Visualized sinuses and mastoids are clear. IMPRESSION: No acute intracranial pathology. Reviewed by: Wade Mariano MD on 08/17/2023 5:58 PM YUDITH Approved by: Wade Mariano MD on 08/17/2023 5:58 PM AKRIA Station ID: [id number]
--- NOTE | 2023-08-17 19:00 | XRAY Report ---
PROCEDURE: Clavicle RT INDICATIONS: fall, pain TECHNIQUE: 2 views of the clavicle were acquired. COMPARISON: None. FINDINGS: Bones: No fractures or dislocations. Mild acromioclavicular joint degeneration. No suspicious bony l esions. Soft tissues: No suspicious soft tissue calcifications or masses. IMPRESSION: No acute fracture. Reviewed by: Wade Mariano MD on 08/17/2023 5:59 PM AKRIA Approved by: Wade Mariano MD on 08/17/2023 5:59 PM AKDT Station ID: [id number]
--- NOTE | 2023-08-17 19:01 | XRAY Report ---
PROCEDURE: Shoulder 2+V RT INDICATIONS: fall, pain TECHNIQUE: 3 views of the shoulder were acquired. COMPARISON: None. FINDINGS: Bones: No fractures or dislocations. Mild acromioclavicular and glenohumeral joint degeneration. No suspicious bony lesions. Visualized ribs appear intact. Soft tissues: No suspicious soft tissue calcifications. The visualized lungs are within normal limi ts. IMPRESSION: No acute bony abnormality. Reviewed by: Wade Mariano MD on 08/17/2023 6:00 PM YUDITH Approved by: Wade Mariano MD on 08/17/2023 6:00 PM YUDITH Station ID: [id number]
--- NOTE | 2023-08-17 19:01 | XRAY Report ---
PROCEDURE: Hip w/Pelvis 2-3V RT INDICATIONS: fall, pain TECHNIQUE: 2 views of the hip were acquired. COMPARISON: None. FINDINGS: Bones: No fractures or dislocations. Moderate degenerative changes of the hips. No suspicious bony l esions. Soft tissues: No suspicious soft tissue calcifications or masses. IMPRESSION: No acute bony abnormality. Reviewed by: Wade Mariano MD on 08/17/2023 5:59 PM AKDT Approved by: Wade Mariano MD on 08/17/2023 5:59 PM AKDT Station ID: [id number]
[2023-08-17] MEDS ORDERED: oxyCODONE 5 MG TABLET ONE (19:04)
[2023-08-17] MEDS: oxyCODONE 5 MG TABLET PO STA (19:05)
[2023-08-17 19:44] VITALS: BP 120/66; O2SAT 96
== END 2023-08-17 19:37 | disposition home or self-care (01) ==
LOC: ED 17:20
DX: S40.011A Contusion of right shoulder, initial encounter (principal); S70.01XA Contusion of right hip, initial encounter; W18.30XA Fall on same level, unspecified, initial encounter; Y92.009 Unspecified place in unspecified non-institutional (private) residence as the place of occurrence of the external cause
CPT/HCPCS: 70450; 73000; 73030; 73502; 85610; 99283; 99284; A9270

== ENCOUNTER 2023-09-16 22:38 | Outpatient (CLI) | payer MEDICARE | END 2023-09-16 23:39 | disposition EMS.NT | LOC: EMS 22:38 | DX: Z03.89 Encounter for observation for other suspected diseases and conditions ruled out (principal) ==

== ENCOUNTER 2023-10-09 14:07 | Outpatient (CLI) | payer MEDICARE ==
--- NOTE | 2023-10-11 08:16 | Mammography Report ---
BILATERAL DIGITAL SCREENING MAMMOGRAM 3D/2D: 10/09/2023 CLINICAL: Routine screening. Comparison is made to exams dated: 08/15/2022 mammogram, 09/02/2021 mammogram - [facility], and 07/09/2019 mammogram - [facility]. Both breasts are heterogeneously dense, which may obscure small masses (category c / 51-75% glandular tissue). There are benign calcifications in both breasts. No significant masses, calcifications, or other findings are seen in either breast. There has been no significant interval change. IMPRESSION: BENIGN There is no mammographic evidence of malignancy. A 1 year screening mammogram is recommended. Based on the Tyrer Cuzick model (a risk assessment model) the patient's lifetime risk is 11.4% and he r 10 year risk is 0.0%. According to the ACR, ACS, and NCCN guidelines, an annual breast MRI exam cortney ng with mammogram is recommended if the patient's lifetime risk is 20% or greater. This exam was interpreted at Station ID: [id number]. NOTE: For mammograms, a report in lay terms will be sent to the patient. Approximately 15% of breast malignancies will not be visualized mammographically. In the management of a palpable breast mass, a negative mammogram must not discourage biopsy of a clinically suspicious lesion. Electronically Signed By: Ld bermudez/kunal:10/10/2023 08:32:25 letter sent: No_Letter ACR BI-RADS Category 2: Benign Finding(s) 3342F PARENCHYMAL PATTERN: (D) - The breast(s) demonstrate(s) heterogeneously dense fibroglandular parkamrony ma. BI-RADS CATEGORY: (2) - 2 RECOMMENDATION: (ANNUAL) - Recommend routine annual screening mammography. [id number] 1 year screening LATERALITY: (B)
== END 2023-10-09 14:08 | disposition home or self-care (01) ==
LOC: DI 14:07
DX: Z12.31 Encounter for screening mammogram for malignant neoplasm of breast (principal); R92.333 Mammographic heterogeneous density, bilateral breasts

== ENCOUNTER 2023-10-09 14:07 | Outpatient (CLI) | payer MEDICARE ==
[2023-10-09 14:22] LABS: BASOPHILS # (AUTO) 0.1 10^3/uL (0.0-0.1); BASOPHILS % (AUTO) 0.4 %; EOSINOPHILS # (AUTO) 0.4 10^3/uL (0.0-0.7); EOSINOPHILS % (AUTO) 3.5 %; HGB - HEMOGLOBIN 11.8 g/dL (12.0-16.0); LYMPHOCYTES # (AUTO) 4.6 10^3/uL (1.5-3.5); LYMPHOCYTES % (AUTO) 37.5 %; MEAN CORPUSCULAR HEMOGLOBIN 25.3 pg (27.0-31.0); MEAN CORPUSCULAR HGB CONC 30.3 g/dL (32.0-36.0); MEAN CORPUSCULAR VOLUME 83.5 fL (81.0-99.0); MEAN PLATELET VOLUME 10.2 fL (7.9-10.8); MONOCYTES # (AUTO) 0.7 10^3/uL (0.0-1.0); MONOCYTES % (AUTO) 5.7 %; NEUTROPHILS # (AUTO) 6.4 10^3/uL (1.5-6.6); NEUTROPHILS % (AUTO) 52.7 %; PLT - PLATELET COUNT 317 10^3/uL (130-450); RED BLOOD COUNT 4.67 10^6/uL (4.20-5.40); RED CELL DISTRIBUTION WIDTH 18.9 % (12.0-15.0); WHITE BLOOD COUNT 12.2 x10^3/uL (4.8-10.8)
[2023-10-09 15:01] LABS: FERRITIN 6.5 ng/mL (11.0-306.8)
--- NOTE | 2023-10-09 15:32 | CT Report ---
PROCEDURE: Lung Cancer Screen INDICATIONS: PERSONAL HX OF SMOKING, LUNG NODULES TECHNIQUE: A CT scan of the chest was performed. Intravenous contrast media was not administered. Images were re corded and evaluated at appropriate window settings. Reformats: axial MIP of the chest, coronal and s agittal. For radiation dose reduction, the following was used: automated exposure control, adjustment of mA and/or kV according to patient size. COMPARISON: 11/02/2022, 08/09/2021 FINDINGS: Image quality: Excellent. Prior cancer history: Unknown Lungs and pleura: No pleural effusions. No pneumothorax. 0.6 cm right lower lobe smooth, round, rajiv d nodule, /191. 0.4 cm subpleural groundglass nodule superior segment right lower lobe, 12/74. Clus tered subpleural groundglass nodules anterolateral left upper lobe, /57 through 61. The largest melissa sures 0.3 cm. Several other 3 mm and less mainly subpleural scattered nodules in both lungs. All nodu les appear stable in size and number. Mediastinum: Heart size is normal. No pericardial effusion. No large vessel abnormality. No mediastin al adenopathy by size criteria. Two vessel coronary artery calcifications. Chest wall and lower neck: Thyroid is unremarkable. No axillary or supraclavicular adenopathy by size . Bones: No aggressive osseous abnormality. T8 compression fracture is not significantly progressed. No new fractures. Upper Abdomen: Unremarkable. IMPRESSION: Lung RAD: 2 - Benign. Recommendation: Continue annual screening in 12 Months with LDCT Non-Lung Significant Findings: Coronary Arterial Calcification - Moderate or Severe. Consider cardiol ogy referral. Reviewed by: Colleen Brock MD on 10/09/2023 3:31 PM PDT Approved by: Colleen Brock MD on 10/09/2023 3:31 PM PDT Station ID: [id number]
== END 2023-10-09 14:08 | disposition home or self-care (01) ==
LOC: DI 14:07
PROVIDERS: ATTEND Nurse Practitioner Family
DX: R91.8 Other nonspecific abnormal finding of lung field (principal); D50.9 Iron deficiency anemia, unspecified; Z87.891 Personal history of nicotine dependence
CPT/HCPCS: 36415; 82728; 83540; 84466; 85025